=== PATIENT | male | born 1960 | race Caucasian/White ===

== ENCOUNTER → 2016-08-25 12:40 | Outpatient (CLI) | payer OTHER | END | disposition home or self-care (01) | LOC: D.RT 12:40 | DX: J45.909 Unspecified asthma, uncomplicated (principal) ==

== ENCOUNTER → 2017-12-21 12:00 | Outpatient (CLI) | payer OTHER ==
[2017-12-21 13:21] LABS: BASOPHILS 0.8 % (0-2); EOSINOPHILS 1.9 % (0-7); HEMATOCRIT 47.2 % (42.0-54.0); HEMOGLOBIN 16.8 g/dL (13.5-17.5); IMMATURE GRANULOCYTES 3.1 % (0-5); LYMPHOCYTES 24.1 % (15-50); MCH 31.6 pg (26.0-34.0); MCHC 35.6 g/dL (31.0-37.0); MCV 88.9 fL (80.0-100.0); MEAN PLATELET VOLUME 9.6 fL (7.4-10.4); MONOCYTES 4.9 % (2-11); NEUTROPHILS 65.2 % (40-80); PLATELET COUNT 214 10x3/uL (130-400); RBC 5.31 10x6/uL (4.20-6.10); RDW 13.7 % (11.5-14.5); WBC 7.8 10x3/uL (4.8-10.8)
== END | disposition home or self-care (01) ==
LOC: D.RT 12:00
PROVIDERS: Internal Medicine Pulmonary Disease
DX: J45.901 Unspecified asthma with (acute) exacerbation (principal); E88.01 Alpha-1-antitrypsin deficiency

== ENCOUNTER → 2019-06-14 12:22 | Outpatient (CLI) | payer OTHER | END | disposition home or self-care (01) | LOC: D.RT 05-22 11:00 → D.RAD 05-22 11:45 → D.RT 12:22 | PROVIDERS: ATTEND Internal Medicine Pulmonary Disease | DX: J45.909 Unspecified asthma, uncomplicated (principal) ==